=== PATIENT | male | born 1945 | race Caucasian/White ===

== ENCOUNTER 2023-04-22 15:11 | Inpatient (IN) | payer MEDICARE, OTHER ==
--- NOTE | 2023-04-22 15:42 | ED ---
Abdominal Pain HPI - General Source: patient, RN notes reviewed Mode of arrival: EMS Limitations: no limitations - History of Present Illness MD Complaint: abdominal pain <Page Romeo - Last Filed: 04/22/23 15:39> <Inocencio Alejandre - Last Filed: 04/22/23 22:43> - General Chief Complaint: Abdominal Pain Stated Complaint: Abd pain Time Seen by Provider: 04/22/23 15:38 - History of Present Illness Initial Comments: This is a 77-year-old male who presents to the emergency department for abdominal pain. Patient was pushing a sailboat earlier today, when he suddenly felt pain and a bulge in the right lower quadrant. He is concerned because he previously had a hernia repair with mesh in the same area. Denies any nausea or vomiting. (Page Romeo) This is a 77-year-old male with a past medical history of a previous right inguinal hernia status post mesh as well as hypertension presented to the emergency department for right lower abdominal pain and swelling. The patient stated that he was pushing his boat off the dock earlier today but did not notice any pop or sensation. The patient stated that after this, he had continued pain and swelling in the right lower quadrant of his abdomen that was continuous and worsening. The patient stated that the swelling has been increasing to the day to the point where he needed to come to the emergency department for further evaluation. The patient denied any other trauma at this time and was resting in bed comfortably. The patient was mildly nauseous but did not vomit. (Inocencio Alejandre) - Related Data Home Medications Medication Instructions Recorded Confirmed Apixaban [Eliquis] 5 mg PO BID 04/22/23 04/22/23 Lisinopril-Hctz 20-12.5 mg 1 tab PO BID 04/22/23 04/22/23 [Zestoretic 20-12.5] Pravastatin Sodium [Pravachol] 40 mg PO HS 04/22/23 04/22/23 Allergies Allergy/AdvReac Type Severity Reaction Status Date / Time Penicillins Allergy Rash/Hives Verified 04/22/23 22:31 Sulfa (Sulfonamide Allergy Rash/Hives Verified 04/22/23 22:31 Antibiotics) Review of Systems ROS Other: All systems not noted in ROS Statement are negative. <Page Romeo - Last Filed: 04/22/23 15:39> ROS Other: All systems not noted in ROS Statement are negative. <Inocencio Alejandre - Last Filed: 04/22/23 22:43> ROS Statement: Those systems with pertinent positive or pertinent negative responses have been documented in the HPI. Past Medical History Past Medical History: Atrial Fibrillation, Hyperlipidemia, Hypertension History of Any Multi-Drug Resistant Organisms: None Reported Past Surgical History: No Surgical Hx Reported, Hernia Repair Past Psychological History: No Psychological Hx Reported Smoking Status: Former smoker Past Alcohol Use History: Occasional Past Drug Use History: None Reported <Page Romeo - Last Filed: 04/22/23 15:39> General Exam Limitations: no limitations <Page Romeo - Last Filed: 04/22/23 15:39> Limitations: no limitations General appearance: alert, in no apparent distress, obese Head exam: Present: atraumatic, normocephalic, normal inspection Eye exam: Present: normal appearance, PERRL Pupils: Present: normal accommodation ENT exam: Present: normal exam, normal oropharynx, mucous membranes moist Neck exam: Present: normal inspection, full ROM Respiratory exam: Present: normal lung sounds bilaterally Cardiovascular Exam: Present: regular rate, normal rhythm, normal heart sounds GI/Abdominal exam: Present: hernia (Large right inguinal hernia with TTP, no erythema or induration noted as well as any skin changes.) Extremities exam: Present: normal inspection, full ROM Back exam: Present: normal inspection, full ROM Neurological exam: Present: alert, oriented X3, CN II-XII intact Psychiatric exam: Present: normal affect, normal mood Skin exam: Present: warm, dry <Inocencio Alejandre - Last Filed: 04/22/23 22:43> - General Exam Comments Initial Comments: Visual Physical Exam Vital signs reviewed General: Well-appearing, nontoxic, no acute distress. Head: Normocephalic, atraumatic Eyes: PERRLA, EOMI ENT: Airway patent Chest: Nonlabored breathing Skin: No visual rash, normal skin tone Neuro: Alert and oriented 3 Musculoskeletal: No gross abnormalities (Page Romeo) Course Vital Signs 04/22/23 04/22/23 04/22/23 15:31 18:07 22:21 Temperature 98.1 F 99.2 F Pulse Rate 65 71 76 Respiratory 20 18 20 Rate Blood Pressure 167/82 154/93 150/77 O2 Sat by Pulse 100 98 98 Oximetry Medical Decision Making <Page Romeo - Last Filed: 04/22/23 15:39> - Lab Data Result diagrams: 04/22/23 17:18 04/22/23 17:18 <HillInocencio villeda - Last Filed: 04/22/23 22:43> - Medical Decision Making I performed the QuickNote portion of this chart. Signed Page Romeo PA-C. (Page Romeo) Was pt. sent in by a medical professional or institution (, [facility], TEMPLATE LAYOUT WORKER, urgent care, hospital, or intermediate...) When possible be specific @ -No Did you speak to anyone other than the patient for history (EMS, parent, family, police, friend...)? What history was obtained from this source @ -No Did you review nursing and triage notes (agree or disagree)? Why? @ -I reviewed and agree with nursing and triage notes Were old charts reviewed (outside hosp., previous admission, EMS record, old EKG, old radiological studies, urgent care reports/EKG's, intermediate records)? Report findings @ -No old charts were reviewed Differential Diagnosis (chest pain, altered mental status, abdominal pain women, abdominal pain men, vaginal bleeding, weakness, fever, dyspnea, syncope, headache, dizziness, GI bleed, back pain, seizure, CVA, palpatations, mental health)? @ -Appendicitis, right inguinal hernia, incarcerated hernia EKG interpreted by me (3pts min.). @ -None X-rays interpreted by me (1pt min.). @ -None done CT interpreted by me (1pt min.). @ -CT of the abdomen and pelvis with contrast was obtained and was interpreted by myself showing a large inguinal hernia on the right containing loops small bowel with no evidence of complete obstruction. There was no evidence to suggest wall thickening. There was a small hiatal hernia. There was fat containing left inguinal hernia. U/S interpreted by me (1pt. min.). @ -None done What testing was considered but not performed or refused? (CT, X-rays, U/S, labs)? Why? @ -None What meds were considered but not given or refused? Why? @ -None Did you discuss the management of the patient with other professionals (professionals i.e. DrFerny, PA, TEMPLATE LAYOUT WORKER, lab, RT, psych nurse, medical social consultant, faro dealer, teacher, space officer, case repairer)? Give summary @ -Yes, Dr. Kahn was contacted regarding the patient's symptoms as the patient had onset reduction of the hernia by myself. Dr. Kahn evaluated the patient at the bedside and did state that the patient needed to go to the OR for reduction as he was unsuccessful at the bedside. Was smoking cessation discussed for >3mins.? @ -No Was critical care preformed (if so, how long)? @ -No Were there social determinants of health that impacted care today? How? (Homelessness, low income, unemployed, alcoholism, drug addiction, transportation, low edu. Level, literacy, decrease access to med. care, fdc, rehab)? @ -No Was there de-escalation of care discussed even if they declined (Discuss DNR or withdrawal of care, Hospice)? DNR status @ -No What co-morbidities impacted this encounter? (DM, HTN, Smoking, COPD, CAD, Cancer, CVA, ARF, Chemo, Hep., AIDS, mental health diagnosis, sleep apnea, morbid obesity)? @ -Previous right inguinal hernia and mesh Was patient admitted / discharged? Hospital course, mention meds given and route, prescriptions, significant lab abnormalities, going to OR and other pertinent info. @ -The patient was seen and evaluated emergency department. Physical exam, the patient was resting in bed without any acute distress. The patient had mild pain secondary to right lower abdominal swelling. Vital signs admission were stable. Due to the nature the patient's complaints, laboratory workup as well as CT abdomen and pelvis was obtained. Laboratory workup was significant for an elevated lactic acid. Computed tomography scan did show a large right inguinal hernia. I did attempt to reduce the hernia 2 times in the emergency department was a successful. The patient received pain medications but did not help with the reduction. Dr. Kahn was contacted and did see the patient at the bedside in the emergency department and was unsuccessful as well. Due to this, he did recommend the patient go to the operating room forward duction and fixation. The operating room and staff for arty in the hospital therefore the patient was admitted to the operating room for surgical fixation this evening. The patient was told this plan and was agreeable. The patient was admitted to the operating room. Undiagnosed new problem with uncertain prognosis? @ -No Drug Therapy requiring intensive monitoring for toxicity (Heparin, Nitro, Insulin, Cardizem)? @ -No Were any procedures done? @ -No Diagnosis/symptom? @ -Right inguinal hernia Acute, or Chronic, or Acute on Chronic? @ -Acute Uncomplicated (without systemic symptoms) or Complicated (systemic symptoms)? @ -Complicated Side effects of treatment? @ -No Exacerbation, Progression, or Severe Exacerbation? @ -No Poses a threat to life or bodily function? How? (Chest pain, USA, MS, pneumonia, PE, COPD, DKA, ARF, appy, cholecystitis, CVA, Diverticulitis, Homicidal, Suicidal, threat to staff... and all critical care pts) @ -Yes, continued unreduced hernia can lead to incarceration and necrosis of bowel leading to possible sepsis and . (Inocencio Alejandre) - Lab Data Lab Results 04/22/23 04/22/23 04/22/23 Range/Units 17:18 17:18 17:18 WBC 8.6 (3.8-10.6) k/uL RBC 4.23 L (4.30-5.90) m/uL Hgb 14.9 (13.0-17.5) gm/dL Hct 42.2 (39.0-53.0) % MCV 99.7 (80.0-100.0) fL MCH 35.3 H (25.0-35.0) pg MCHC 35.4 (31.0-37.0) g/dL RDW 13.1 (11.5-15.5) % Plt Count 145 L (150-450) k/uL MPV 9.7 Neutrophils % 92 % Lymphocytes % 5 % Monocytes % 2 % Eosinophils % 1 % Basophils % 1 % Neutrophils # 7.9 H (1.3-7.7) k/uL Lymphocytes # 0.4 L (1.0-4.8) k/uL Monocytes # 0.1 (0-1.0) k/uL Eosinophils # 0.1 (0-0.7) k/uL Basophils # 0.0 (0-0.2) k/uL Sodium 137 (137-145) mmol/L Potassium 4.0 (3.5-5.1) mmol/L Chloride 104 (98-107) mmol/L Carbon Dioxide 23 (22-30) mmol/L Anion Gap 10 mmol/L BUN 25 H (9-20) mg/dL Creatinine 1.03 (0.66-1.25) mg/dL Est GFR (CKD-EPI)AfAm 82 (>60 ml/min/1.73 sqM) Est GFR (CKD-EPI)NonAf 71 (>60 ml/min/1.73 sqM) Glucose 124 H (74-99) mg/dL Lactic Ac Sepsis Rflx Plasma Lactic Acid Nael 2.7 H* (0.7-2.0) mmol/L Calcium 10.1 (8.4-10.2) mg/dL Total Bilirubin 1.0 (0.2-1.3) mg/dL AST 34 (17-59) U/L ALT 24 (4-49) U/L Alkaline Phosphatase 54 (38-126) U/L Total Protein 7.1 (6.3-8.2) g/dL Albumin 4.6 (3.5-5.0) g/dL Lipase 74 (23-300) U/L 04/22/23 04/22/23 Range/Units 17:49 20:58 WBC (3.8-10.6) k/uL RBC (4.30-5.90) m/uL Hgb (13.0-17.5) gm/dL Hct (39.0-53.0) % MCV (80.0-100.0) fL MCH (25.0-35.0) pg MCHC (31.0-37.0) g/dL RDW (11.5-15.5) % Plt Count (150-450) k/uL MPV Neutrophils % % Lymphocytes % % Monocytes % % Eosinophils % % Basophils % % Neutrophils # (1.3-7.7) k/uL Lymphocytes # (1.0-4.8) k/uL Monocytes # (0-1.0) k/uL Eosinophils # (0-0.7) k/uL Basophils # (0-0.2) k/uL Sodium (137-145) mmol/L Potassium (3.5-5.1) mmol/L Chloride (98-107) mmol/L Carbon Dioxide (22-30) mmol/L Anion Gap mmol/L BUN (9-20) mg/dL Creatinine (0.66-1.25) mg/dL Est GFR (CKD-EPI)AfAm (>60 ml/min/1.73 sqM) Est GFR (CKD-EPI)NonAf (>60 ml/min/1.73 sqM) Glucose (74-99) mg/dL Lactic Ac Sepsis Rflx Y Plasma Lactic Acid Nael 1.1 (0.7-2.0) mmol/L Calcium (8.4-10.2) mg/dL Total Bilirubin (0.2-1.3) mg/dL AST (17-59) U/L ALT (4-49) U/L Alkaline Phosphatase (38-126) U/L Total Protein (6.3-8.2) g/dL Albumin (3.5-5.0) g/dL Lipase (23-300) U/L Disposition <Page Romeo - Last Filed: 04/22/23 15:39> Is patient prescribed a controlled substance at d/c from ED?: No Time of Disposition: 22:00 Decision to Admit Reason: Admit from EC Decision Date: 04/22/23 Decision Time: 22:00 <Inocencio Alejandre - Last Filed: 04/22/23 22:43> Clinical Impression: Inguinal hernia Disposition: ADMITTED IP TO THIS HOSP Condition: Stable Referrals: Nonstaff,Physician [Primary Care Provider] - 1-2 days
[2023-04-22] MEDS ORDERED: SODIUM CHLORIDE 0.9% 1,000 ML IV ONE ×2 (17:10→22:30)
[2023-04-22] MEDS ORDERED: MORPHINE SULFATE 4 MG/ML SYRINGE IVP STA (17:10)
[2023-04-22 17:31] LABS: Basophils % (A) 1 %; Eosinophils # (A) 0.1 k/uL (0-0.7); Eosinophils % (A) 1 %; HCT 42.2 % (39.0-53.0); HGB 14.9 gm/dL (13.0-17.5); Lymphocytes # (A) 0.4 k/uL (1.0-4.8); Lymphocytes % (A) 5 %; MCH 35.3 pg (25.0-35.0); MCHC 35.4 g/dL (31.0-37.0); MCV 99.7 fL (80.0-100.0); Mean Platelet Volume 9.7; Monocytes # (A) 0.1 k/uL (0-1.0); Monocytes % (A) 2 %; Neutrophils # (A) 7.9 k/uL (1.3-7.7); Neutrophils % (A) 92 %; Platelet Count 145 k/uL (150-450); RBC 4.23 m/uL (4.30-5.90); RDW 13.1 % (11.5-15.5); WBC 8.6 k/uL (3.8-10.6)
[2023-04-22 17:41] LABS: ALT 24 U/L (4-49); AST 34 U/L (17-59); African American GFR (CKD) 82 (>60 ml/min/1.73 sqM); Albumin 4.6 g/dL (3.5-5.0); Alkaline Phosphatase 54 U/L (38-126); Anion Gap 10 mmol/L; Blood Urea Nitrogen 25 mg/dL (9-20); Calcium 10.1 mg/dL (8.4-10.2); Carbon Dioxide 23 mmol/L (22-30); Chloride 104 mmol/L (98-107); Glucose 124 mg/dL (74-99); Lipase 74 U/L (23-300); Non-African American GFR(CKD) 71 (>60 ml/min/1.73 sqM); Sodium 137 mmol/L (137-145); Total Protein 7.1 g/dL (6.3-8.2)
--- NOTE | 2023-04-22 19:16 | CT ---
EXAMINATION TYPE: CT abdomen pelvis w con CT DLP: 2271.9 mGycm, Automated exposure control for dose reduction was used. DATE OF EXAM: 04/22/2023 6:47 PM COMPARISON: None. CLINICAL INDICATION:Male, 77 years old with history of RLQ pain, swelling; RLQ pain after handling he valeria object. Hx of hernia with mesh. TECHNIQUE: Axial CT of the abdomen and pelvis. Sagittal and coronal reformats were created on a [employer] workstation. Contrast used:100 ml mL of Isovue 300 with IV Contrast, (none if empty) Oral contrast used: without Oral Contrast (none if empty) FINDINGS: LOWER CHEST: Coronary artery calcifications. ABDOMEN LIVER: Unremarkable GALLBLADDER AND BILE DUCTS: Unremarkable. PANCREAS: Unremarkable. SPLEEN: Unremarkable. ADRENAL GLANDS: Unremarkable. KIDNEYS AND URETERS: No evidence of hydronephrosis or renal calculus. The ureters are unremarkable. PELVIS BLADDER: Unremarkable REPRODUCTIVE: Unremarkable. ABDOMEN & PELVIS STOMACH AND BOWEL: No evidence of bowel obstruction. Small hiatal hernia is present. Appendix is not visualized. Bowel loops in a right lower quadrant inguinal hernia as described below. PERITONEUM/RETROPERITONEUM: No evidence of pneumoperitoneum or free fluid. VASCULATURE: No evidence of aortic aneurysm. MUSCULOSKELETAL: No acute osseous abnormalities LYMPH NODES: No gross evidence for lymphadenopathy. SOFT TISSUE/ABDOMINAL WALL: Large inguinal hernia on the right containing loops of small bowel No fatou dence complete obstruction. No evidence for wall thickening to suggest attenuation. Fat-containing le ft inguinal hernia. Fat-containing umbilical hernia. IMPRESSION: 1. Large inguinal hernia on the right containing loops of small bowel No evidence complete obstructi on. No evidence for wall thickening to suggest attenuation. 2. Small hiatal hernia. 3. Fat-containing left inguinal hernia.
[2023-04-22] MEDS ORDERED: SODIUM CHLORIDE 0.9% 1,000 ML IV STA (22:12)
[2023-04-22] MEDS ORDERED: LEVOFLOXACIN 500MG-D5W PMX 500 MG in DEXTROSE/WATER 1 100ML.BAG IVPB STA (22:13)
[2023-04-22] MEDS ORDERED: NALOXONE 0.4 MG/ML 1 ML VIAL IV PRN (22:14)
--- NOTE | 2023-04-22 22:21 | P.GSHP ---
History of Present Illness H&P Date: 04/22/23 Chief Complaint: Incarcerated right inguinal hernia 77-year-old male came to the ER today. Patient has a boat that he was using to travel [facility]. He was pushing the boat away from the doctor earlier today when he felt the pain and a bulge in the right groin. Patient had previous open repair 5 years ago same location. Has had nausea, belching, decreased bowel function, increasing pain as the day progressed. Mild lactic acidosis on arrival. White blood cell count is normal. - Review of Systems Comment: The patient denies any acute changes in vision or hearing, no dysphagia or odynophagia, no chest pain or shortness of breath, no dysuria or hematuria, no headache, no runny nose, no rectal bleeding or melena, no unexplained weight loss Past Medical History Past Medical History: Atrial Fibrillation, Hyperlipidemia, Hypertension History of Any Multi-Drug Resistant Organisms: None Reported Past Surgical History: No Surgical Hx Reported, Hernia Repair Past Psychological History: No Psychological Hx Reported Smoking Status: Former smoker Past Alcohol Use History: Occasional Past Drug Use History: None Reported Medications and Allergies Allergies Allergy/AdvReac Type Severity Reaction Status Date / Time Penicillins Allergy Rash/Hives Verified 04/22/23 15:36 Sulfa (Sulfonamide Allergy Rash/Hives Verified 04/22/23 15:36 Antibiotics) Surgical - Exam Vital Signs Temp Pulse Resp BP Pulse Ox 98.1 F 65 20 167/82 100 04/22/23 15:31 04/22/23 15:31 04/22/23 15:31 04/22/23 15:31 04/22/23 15:31 Physical exam: General: Well-developed, well-nourished HEENT: Normocephalic, sclerae nonicteric Abdomen: Incarcerated right inguinal hernia, moderate tenderness, no overlying skin changes Extremities: No edema Neuro: Alert and oriented Results - Labs 04/22/23 17:18 04/22/23 17:18 Abnormal Lab Results - Last 24 Hours (Table) 04/22/23 04/22/23 04/22/23 Range/Units 17:18 17:18 17:18 RBC 4.23 L (4.30-5.90) m/uL MCH 35.3 H (25.0-35.0) pg Plt Count 145 L (150-450) k/uL Neutrophils # 7.9 H (1.3-7.7) k/uL Lymphocytes # 0.4 L (1.0-4.8) k/uL BUN 25 H (9-20) mg/dL Glucose 124 H (74-99) mg/dL Plasma Lactic Acid Nael 2.7 H* (0.7-2.0) mmol/L Diabetes panel 04/22/23 Range/Units 17:18 Sodium 137 (137-145) mmol/L Potassium 4.0 (3.5-5.1) mmol/L Chloride 104 (98-107) mmol/L Carbon Dioxide 23 (22-30) mmol/L BUN 25 H (9-20) mg/dL Creatinine 1.03 (0.66-1.25) mg/dL Glucose 124 H (74-99) mg/dL Calcium 10.1 (8.4-10.2) mg/dL AST 34 (17-59) U/L ALT 24 (4-49) U/L Alkaline Phosphatase 54 (38-126) U/L Total Protein 7.1 (6.3-8.2) g/dL Albumin 4.6 (3.5-5.0) g/dL Calcium panel 04/22/23 Range/Units 17:18 Calcium 10.1 (8.4-10.2) mg/dL Albumin 4.6 (3.5-5.0) g/dL Pituitary panel 04/22/23 Range/Units 17:18 Sodium 137 (137-145) mmol/L Potassium 4.0 (3.5-5.1) mmol/L Chloride 104 (98-107) mmol/L Carbon Dioxide 23 (22-30) mmol/L BUN 25 H (9-20) mg/dL Creatinine 1.03 (0.66-1.25) mg/dL Glucose 124 H (74-99) mg/dL Calcium 10.1 (8.4-10.2) mg/dL Adrenal panel 04/22/23 Range/Units 17:18 Sodium 137 (137-145) mmol/L Potassium 4.0 (3.5-5.1) mmol/L Chloride 104 (98-107) mmol/L Carbon Dioxide 23 (22-30) mmol/L BUN 25 H (9-20) mg/dL Creatinine 1.03 (0.66-1.25) mg/dL Glucose 124 H (74-99) mg/dL Calcium 10.1 (8.4-10.2) mg/dL Total Bilirubin 1.0 (0.2-1.3) mg/dL AST 34 (17-59) U/L ALT 24 (4-49) U/L Alkaline Phosphatase 54 (38-126) U/L Total Protein 7.1 (6.3-8.2) g/dL Albumin 4.6 (3.5-5.0) g/dL Assessment and Plan (1) Incarcerated right inguinal hernia Narrative/Plan: 77-year-old male with incarcerated right inguinal hernia. Multiple attempts at bedside reduction unsuccessful. Options reviewed. We'll proceed with open repair incarcerated right inguinal hernia with possible mesh. Discussed with patient that small bowel resection and or laparotomy may be required as well. Risks of bleeding, infection, recurrence, bladder and bowel injury, numbness, nerve injury, conversion to an laparotomy were discussed with the patient. The patient understands and wishes to proceed. Current Visit: Yes Status: Acute Code(s): K40.30 - UNIL INGUINAL HERNIA, W OBST, W/O GANGR, NOT SPCF RECUR SNOMED Code(s): 473417092
[2023-04-22] MEDS ORDERED: MIDAZOLAM 2 MG/2 ML VIAL ONE (23:21)
[2023-04-22] MEDS ORDERED: LIDOCAINE 2% INJ 20 MG/ML (2 ML VIAL) ONE (23:21)
[2023-04-22] MEDS ORDERED: ONDANSETRON 4 MG/2 ML VIAL ONE (23:21)
[2023-04-22] MEDS ORDERED: SUCCINYLCHOLINE CHLORIDE 200 MG/10 ML VIAL IV ONE (23:21)
[2023-04-22] MEDS ORDERED: GLYCOPYRROLATE 0.2 MG/ML 2 ML VIAL ONE (23:21)
[2023-04-22] MEDS ORDERED: fentaNYL (PF) 50 MCG/ML 2 ML AMP ONE (23:21)
[2023-04-22] MEDS ORDERED: ROCURONIUM 10 MG/ML (5 ML VIAL) IV ONE (23:21)
[2023-04-22] MEDS ORDERED: PROPOFOL 10 MG/ML 20 ML VIAL IV ONE (23:21)
[2023-04-22] MEDS ORDERED: NEOSTIGMINE 1 MG/ML 10 ML VIAL ONE (23:21)
[2023-04-23] MEDS ORDERED: BUPIVACAINE (PF) 0.25% 30 ML VIAL SQ ONE (00:41)
[2023-04-23] MEDS ORDERED: HYDROcodone/APAP 5-325MG 1 EACH TAB PO PRN (00:53)
[2023-04-23] MEDS ORDERED: HYDROmorphone 0.5 MG/0.5 ML SYRINGE IVP PRN (00:53)
[2023-04-23] MEDS ORDERED: ACETAMINOPHEN TAB 325 MG TAB PO PRN (00:53)
[2023-04-23] MEDS ORDERED: ONDANSETRON 4 MG/2 ML VIAL IVP PRN (00:53)
[2023-04-23] MEDS ORDERED: HYDROmorphone 1 MG/ML 1 ML SYRINGE IVP PRN (00:53)
[2023-04-23] MEDS ORDERED: ACETAMINOPHEN IV (For NPO) 1,000 MG in EMPTY BAG 1 BAG IVPB ONE (01:00)
--- NOTE | 2023-04-23 01:01 | P.OP ---
Date of Procedure: 04/23/23 Procedure(s) Performed: PREOPERATIVE DIAGNOSIS: Incarcerated recurrent right inguinal hernia POSTOPERATIVE DIAGNOSIS: Strangulated recurrent right inguinal hernia PROCEDURE: Open repair strangulated right inguinal hernia, laparotomy with small bowel resection SURGEON: Femi EBL: 50 mL ANESTHESIA: Gen. COMPLICATIONS: None OPERATIVE PROCEDURE: Patient placed on the operating table in the supine position. The patient was placed under general anesthesia. The abdomen was prepped and draped sterilely. The previous right groin incision was re-incised extending medially. The subcutaneous tissues were divided using electrocautery. Small vessels were divided using 3-0 silk ties. The external oblique was identified and incised sharply. The hernia sac was identified and opened. It was dark purple in color. As soon as we opened the hernia sac the ischemic small bowel was identified. There was a segment of ischemic small bowel that was also hemorrhagic in appearance. The defect in the hernia site itself was fairly small measuring 1.5-2 cm in diameter. With some difficulty we were able to reduce the small bowel back into the abdominal cavity. The defect was inspected. The patient had what felt like a mesh plug superiorly. The hernia sac was ligated using 0 Ethibond sutures. The mesh was then sutured down to the inguinal ligament using interrupted [id number] 0 Ethibond sutures. This appeared to provide nice closure of the recurrent hernia. No mesh was used because of the ischemic bowel. Next a curvilinear incision was made to the right of the umbilicus. The subcutaneous tissues were divided using electrocautery. The fascia was divided using electrocautery as well. The small bowel was inspected. The distal ileum was the ischemic segment. The superior only marginally improved after reduction of the abdominal cavity. Both the mesentery and the bowel itself appeared purplish in color and of questionable viability. It was decided to proceed with resection. The bowel was divided proximal and distal to this using a linear 75 stapler. The mesentery was divided using LigaSure. The antimesenteric portion of the staple line was excised. The linear 75 stapler was fired on the antimesenteric border. The remaining defect was closed transversely using a TX 60 device. 3-0 GI stitch at the crotch of the anastomosis took place. The TX 60 stapler line was imbricated using 3-0 GI silk sutures as well. The bowel was reduced back into the perineal cavity. The area was irrigated with saline. The fascia was then reapproximated using a double-stranded #1 PDS suture. Subcutaneous tissues were closed using interrupted 3-0 Vicryl sutures. The skin was closed using emelyn. The groin was then addressed. The external oblique was closed using a running 2-0 Vicryl suture. The subcutaneous tissues were closed using 3-0 Vicryl sutures. The skin was closed using emelyn. Sterile dressings were applied to both locations. DISPOSITION: Stable to recovery room. The patient's was contacted by phone the results of the procedure were discussed in detail. All questions answered
[2023-04-23 06:40] LABS: Appearance,Urine Clear (Clear); Color,Urine Yellow
[2023-04-23 06:42] LABS: PH, Urine 5.5 (5.0-8.0); Specific Gravity,Urine >1.050 (1.001-1.035)
[2023-04-23 06:43] LABS: Bilirubin,Urine Negative (Negative); Blood,Urine Negative (Negative); Glucose,Urine (UA) Negative (Negative); Ketones,Urine 2+ (Negative); Leukocyte Esterase,Urine Negative (Negative); Nitrite,Urine Negative (Negative); Protein,Urine Trace (Negative); Urobilinogen,Urine <2.0 mg/dL (<2.0)
[2023-04-23] MEDS: PANTOPRAZOLE 40 MG/10 ML VIAL IV SCH (08:49)
[2023-04-23] MEDS: HEPARIN SODIUM,PORCINE/PF 5,000 UNIT/0.5 ML SYRINGE SQ SCH ×2 (08:49→16:45)
[2023-04-23 11:51] LABS: Basophils # (A) 0.1 k/uL (0-0.2); Basophils % (A) 1 %; Eosinophils % (A) 0 %; HCT 39.7 % (39.0-53.0); HGB 13.7 gm/dL (13.0-17.5); Lymphocytes # (A) 0.6 k/uL (1.0-4.8); Lymphocytes % (A) 6 %; MCH 35.1 pg (25.0-35.0); MCHC 34.5 g/dL (31.0-37.0); MCV 101.8 fL (80.0-100.0); Macrocytosis Slight; Mean Platelet Volume 9.7; Monocytes # (A) 0.7 k/uL (0-1.0); Monocytes % (A) 7 %; Neutrophils # (A) 8.3 k/uL (1.3-7.7); Neutrophils % (A) 85 %; Platelet Count 133 k/uL (150-450); RDW 13.5 % (11.5-15.5); WBC 9.7 k/uL (3.8-10.6)
[2023-04-23 12:05] LABS: African American GFR (CKD) >90 (>60 ml/min/1.73 sqM); Anion Gap 7 mmol/L; Blood Urea Nitrogen 22 mg/dL (9-20); Calcium 8.8 mg/dL (8.4-10.2); Carbon Dioxide 26 mmol/L (22-30); Chloride 105 mmol/L (98-107); Glucose 110 mg/dL (74-99); Magnesium 1.9 mg/dL (1.6-2.3); Non-African American GFR(CKD) 84 (>60 ml/min/1.73 sqM); Sodium 138 mmol/L (137-145)
--- NOTE | 2023-04-23 14:54 | P.CONS ---
History of Present Illness - Reason for Consult Consult date: 04/23/23 Medical management, postop incarcerated hernia repair - History of Present Illness This is a 77-year-old male who presented to the emergency department via EMS with significant abdominal pain. Patient was up here from [place] with friends on a boat trip and had been pushing the sailboat and felt a large bulge in the right lower quadrant with significant pain. Patient reports he had a past medical history of hernia repair with mesh in that same area and was concerned about the mesh becoming dislodged. Patient reports he has a past medical history of atrial fibrillation maintained on eliquis, hyperlipidemia, and hyp ertension. Patient reports his primary care provider is in [place] at his residence. Patient had CT abdomen and pelvis which showed large inguinal hernia on the right containing loops of small bowel with no evidence of complete obstruction, no evidence of wall thickening to suggest attenuation, small hiatal hernia and fat-containing left inguinal hernia. Patient was admitted under surgical services and evaluated by surgery and underwent emergent open repair of the strangulated right hernia with laparotomy with small bowel resection for strangulated recurrent right inguinal hernia. Patient anticoagulation is on hold and will discuss with surgery about resuming Eliquis. Patient did have some lactic acidosis on admission which has normalized and kidney functions have improved from yesterday other labs reviewed and within normal limits. Patient was nothing by mouth and currently being started on clear liquids per surgery recommendations. Recommend only advancing per surgical requirements. Review Of Systems: Constitutional: No fever, no chills, no night sweats. No weight change. No weakness, fatigue or lethargy. No daytime sleepiness. EENT: No headache. No blurred vision or double vision, no loss of vision. No loss of Hearing, no ringing in the ears, no dizziness. No nasal drainage or congestion. No epistaxis. No sore throat. Lungs: No shortness of breath, cough, no sputum production. No wheezing. Cardiovascular: No chest pain, no lower extremity edema. No palpitations. No paroxysmal nocturnal dyspnea. No orthopnea. No lightheadedness or dizziness. No syncopal episodes. Abdominal: Reports some mild abdominal pain in the right lower quadrant with movement. No nausea, vomiting. No diarrhea. No constipation. No bloody or tarry stools.. No loss of appetite. Reports feeling slightly hungry Genitourinary: No dysuria, increased frequency, urgency. No urinary retention. Musculoskeletal: No myalgias. No muscle weakness, no gait dysfunction, no frequent falls. No back pain. No neck pain. Integumentary: No wounds, no lesions. No rash or pruritus. No unusual bruising. No change in hair or nails. Neurologic: No aphasia. No facial droop. No change in mentation. No head injury. No headache. No paralysis. No paresthesia. Psychiatric: No depression. No anxiety. No mood swings. Endocrine: No abnormal blood sugars. No weight change. No excessive sweating or thirst. No cold intolerance. PHYSICAL EXAMINATION: GENERAL: The patient is alert and oriented x4, Well developed, well nourished. Obese HEENT: Pupils are round and equally reacting to light. EOMI. no scleral icterus. No conjunctival pallor. Normocephalic, atraumatic. No pharyngeal erythema. No thyromegaly. CARDIOVASCULAR: S1 and S2 muffled PULMONARY: diminished breath sounds bilaterally with no wheezing or rhonchi noted. ABDOMEN: soft. tender on exam of the right lower quadrant. obese. non- distended, hypoactive bowel sounds. No palpable organomegaly. MUSCULOSKELETAL: No joint swelling or deformity. EXTREMITIES: No cyanosis, clubbing, or pedal edema. NEUROLOGICAL: Gross neurological examination did not reveal any focal deficits. SKIN: No rashes. Assessment: Abdominal pain secondary to incarcerated inguinal hernia status post open repair of strangulated right hernia with laparotomy with small bowel resection Lactic acidosis, secondary to above, improved History of atrial fibrillation Hyperlipidemia Hypertension Former smoker Obesity with a BMI of 36.3 GI prophylaxis DVT prophylaxis Full code Plan: Patient is to continue on nothing by mouth status per surgery recommendations and slowly being advanced to clear liquids today Encouraged incentive spirometer use at least 10 times every hour while awake Oral anticoagulation currently on hold and will hold for now per surgery recommendations and resume once okayed by surgery Encouraged increased activity as tolerated Blood pressures are currently normotensive and will hold blood pressure medica tions to monitor for any postoperative hypotension Patient lives in [place] and was visiting here on a sailboat with friends and has been instructed to follow-up with primary care provider once discharged We will continue to follow with general surgery during hospitalization. Thank you kindly for this consultation. The impression and plan of care has been dictated by Carolyn Ayon, nurse practitioner as directed. Dr. Mireya MD I have performed a history and examination and MDM of this patient, discussed the same with the dictator, and agree with the dictator's assessment and plan as written ,documented as a scribe. Based on total visit time, I have performed more than 50% of the visit. Any additional findings or plans will be noted. Past Medical History Past Medical History: Atrial Fibrillation, Hyperlipidemia, Hypertension History of Any Multi-Drug Resistant Organisms: None Reported Past Surgical History: No Surgical Hx Reported, Bowel Resection, Hernia Repair Additional Past Surgical History / Comment(s): 04/23/23 Bowel Resection Past Anesthesia/Blood Transfusion Reactions: No Reported Reaction Past Psychological History: No Psychological Hx Reported Smoking Status: Former smoker Past Alcohol Use History: Occasional Past Drug Use History: None Reported Medications and Allergies Home Medications Medication Instructions Recorded Confirmed Type Apixaban [Eliquis] 5 mg PO BID 04/22/23 04/22/23 History Lisinopril-Hctz 20-12.5 mg 1 tab PO BID 04/22/23 04/22/23 History [Zestoretic 20-12.5] Pravastatin Sodium [Pravachol] 40 mg PO HS 04/22/23 04/22/23 History Allergies Allergy/AdvReac Type Severity Reaction Status Date / Time Penicillins Allergy Rash/Hives Verified 04/22/23 22:31 Sulfa (Sulfonamide Allergy Rash/Hives Verified 04/22/23 22:31 Antibiotics) Physical Exam Vitals: Vital Signs Temp Pulse Pulse Resp BP BP Pulse Ox 04/23/23 08:06 98.6 F 80 18 129/69 98 04/23/23 04:26 71 104/62 95 04/23/23 03:25 71 110/67 93 L 04/23/23 02:55 73 110/69 04/23/23 02:31 18 04/23/23 02:25 65 113/67 04/23/23 02:10 68 118/66 04/23/23 01:55 69 126/71 04/23/23 01:40 134/75 04/23/23 01:30 98.7 F 77 18 136/94 96 04/23/23 01:25 98.7 F 72 136/94 95 04/23/23 01:15 82 18 140/65 99 04/23/23 01:01 79 18 147/71 98 04/23/23 00:46 97.0 F L 81 18 128/66 94 L 04/22/23 22:36 98.9 F 68 18 99 04/22/23 22:21 76 20 150/77 98 04/22/23 18:07 99.2 F 71 18 154/93 98 04/22/23 15:31 98.1 F 65 20 167/82 100 Intake and Output 04/22/23 04/23/23 04/23/23 22:59 06:59 14:59 Intake Total 0 Output Total 425 Balance -425 Intake: Oral 0 Output: Urine 400 Estimated Blood Loss 25 Other: Voiding Method Urinal Weight 117.934 kg 117.934 kg Results CBC & Chem 7: 04/23/23 10:59 04/23/23 10:59 Labs: Abnormal Lab Results - Last 24 Hours (Table) 04/22/23 04/22/23 04/22/23 Range/Units 17:18 17:18 17:18 RBC 4.23 L (4.30-5.90) m/uL MCH 35.3 H (25.0-35.0) pg Plt Count 145 L (150-450) k/uL Neutrophils # 7.9 H (1.3-7.7) k/uL Lymphocytes # 0.4 L (1.0-4.8) k/uL BUN 25 H (9-20) mg/dL Glucose 124 H (74-99) mg/dL Plasma Lactic Acid Nael 2.7 H* (0.7-2.0) mmol/L Ur Specific [place] (1.001-1.035) Urine Ketones (Negative) 04/23/23 Range/Units 06:15 RBC (4.30-5.90) m/uL MCH (25.0-35.0) pg Plt Count (150-450) k/uL Neutrophils # (1.3-7.7) k/uL Lymphocytes # (1.0-4.8) k/uL BUN (9-20) mg/dL Glucose (74-99) mg/dL Plasma Lactic Acid Nael (0.7-2.0) mmol/L Ur Specific [place] >1.050 H (1.001-1.035) Urine Ketones 2+ H (Negative)
--- NOTE | 2023-04-23 15:34 | P.PN ---
Subjective Progress Note Date: 04/23/23 CHIEF COMPLAINT: Strangulated recurrent right inguinal hernia HISTORY OF PRESENT ILLNESS: Patient is postop day #1 status post open repair of strangulated right inguinal hernia, laparotomy with small bowel resection. Patient reports his pain is controlled. He does have pain with movement. Denies any nausea or vomiting. Denies any flatus. Afebrile. WBC is 9.7 Hgb 13.7 platelets 133 PHYSICAL EXAM: VITAL SIGNS: Reviewed. GENERAL: Well-developed in no acute distress. ABDOMEN: Soft. Nondistended. Tenderness with palpation of incision sites. Midline incision small area of saturation. Right groin incision clean dry and intact. NEUROLOGIC: Alert and oriented. Cranial nerves II through XII grossly intact. ASSESSMENT: 1. Strangulated recurrent right inguinal hernia PLAN: -Advance diet to clear liquids -Abdominal binder ordered -Encouraged patient to use incentive spirometer -Encouraged patient to increase activity level -Continue pain management -DVT prophylaxis subcu heparin and GI prophylaxis Protonix Physician Personal Injury Attorney note has been reviewed by physician. Signing provider agrees with the documented findings, assessment, and plan of care. Objective - Vital Signs Vital signs: Vital Signs Temp 98.3 F 04/23/23 14:13 Pulse 61 04/23/23 14:13 Resp 16 04/23/23 14:13 BP 100/65 04/23/23 14:13 Pulse Ox 97 04/23/23 14:13 FiO2 Intake & Output 04/22/23 04/23/23 04/23/23 18:59 06:59 18:59 Intake Total 500 0 Output Total 425 Balance 500 -425 Weight 117.934 kg 117.934 kg Intake: IV 500 Oral 0 Output: Urine 400 Estimated Blood Loss 25 Other: Voiding Method Urinal Urinal # Voids 1 - Labs CBC & Chem 7: 04/23/23 10:59 04/23/23 10:59 Labs: Abnormal Lab Results - Last 24 Hours (Table) 04/22/23 04/22/23 04/22/23 Range/Units 17:18 17:18 17:18 RBC 4.23 L (4.30-5.90) m/uL MCV (80.0-100.0) fL MCH 35.3 H (25.0-35.0) pg Plt Count 145 L (150-450) k/uL Neutrophils # 7.9 H (1.3-7.7) k/uL Lymphocytes # 0.4 L (1.0-4.8) k/uL BUN 25 H (9-20) mg/dL Glucose 124 H (74-99) mg/dL Plasma Lactic Acid Nael 2.7 H* (0.7-2.0) mmol/L Ur Specific [place] (1.001-1.035) Urine Ketones (Negative) 04/23/23 04/23/23 04/23/23 Range/Units 06:15 10:59 10:59 RBC 3.90 L (4.30-5.90) m/uL MCV 101.8 H (80.0-100.0) fL MCH 35.1 H (25.0-35.0) pg Plt Count 133 L (150-450) k/uL Neutrophils # 8.3 H (1.3-7.7) k/uL Lymphocytes # 0.6 L (1.0-4.8) k/uL BUN 22 H (9-20) mg/dL Glucose 110 H (74-99) mg/dL Plasma Lactic Acid Nael (0.7-2.0) mmol/L Ur Specific [place] >1.050 H (1.001-1.035) Urine Ketones 2+ H (Negative)
[2023-04-24] MEDS: HEPARIN SODIUM,PORCINE/PF 5,000 UNIT/0.5 ML SYRINGE SQ SCH ×2 (00:36→09:26)
[2023-04-24] MEDS: PANTOPRAZOLE 40 MG/10 ML VIAL IV SCH (09:07)
--- NOTE | 2023-04-24 14:00 | P.PN ---
Subjective Progress Note Date: 04/24/23 CHIEF COMPLAINT: Strangulated recurrent right inguinal hernia HISTORY OF PRESENT ILLNESS: Patient is postop day #2 status post open repair of strangulated right inguinal hernia, laparotomy with small bowel resection. Patient reports his pain is controlled. Pain with movement is less. Denies any nausea or vomiting. Denies any flatus. Patient did not like the broth the clear liquids. Afebrile. WBC 9.7 hgb 13.7 PHYSICAL EXAM: VITAL SIGNS: Reviewed. GENERAL: Well-developed in no acute distress. ABDOMEN: Soft. Nondistended. Abdominal binder in place. Tenderness with palpation of incision sites. Midline incision small area of saturation. Right groin incision clean dry and intact. NEUROLOGIC: Alert and oriented. Cranial nerves II through XII grossly intact. ASSESSMENT: 1. Strangulated recurrent right inguinal hernia PLAN: -Advance diet to full liquids for dinner -Encouraged patient to use incentive spirometer -Encouraged patient to increase activity level -Continue pain management -Add Ensure clear with meals -DVT prophylaxis subcu heparin and GI prophylaxis Protonix Physician Collections Representative note has been reviewed by physician. Signing provider agrees with the documented findings, assessment, and plan of care. I have personally seen and examined the patient, reviewed the BIOMASS FACILITATOR /PAs history, exam and MDM and agree with the assessment and plan as written. Based on total visit time, I have performed more than 50% of the visit. As above: Patient feels bloated today. No nausea. No flatus. Will keep nothing by mouth for now. Dilation. Encourage gum chewing. Objective - Vital Signs Vital signs: Vital Signs Temp 98.7 F 04/24/23 09:05 Pulse 80 04/24/23 09:05 Resp 18 04/24/23 09:05 BP 107/70 04/24/23 09:05 Pulse Ox 97 04/24/23 09:05 FiO2 Intake & Output 04/23/23 04/24/23 04/24/23 18:59 06:59 18:59 Other: Voiding Method Urinal Toilet Toilet # Voids 3 - Labs CBC & Chem 7: 04/23/23 10:59 04/23/23 10:59
[2023-04-24] MEDS: HEPARIN SODIUM,PORCINE 5,000 UNIT/ML 1 ML VIAL SQ SCH ×2 (15:35→23:19)
--- NOTE | 2023-04-25 05:37 | P.PN ---
Subjective Progress Note Date: 04/24/23 - Reason for Consult Consult date: 04/23/23 Medical management, postop incarcerated hernia repair - History of Present Illness This is a 77-year-old male who presented to the emergency department via EMS with significant abdominal pain. Patient was up here from [place] with friends on a boat trip and had been pushing the sailboat and felt a large bulge in the right lower quadrant with significant pain. Patient reports he had a past me dical history of hernia repair with mesh in that same area and was concerned about the mesh becoming dislodged. Patient reports he has a past medical history of atrial fibrillation maintained on eliquis, hyperlipidemia, and hypertension. Patient reports his primary care provider is in [place] at his residence. Patient had CT abdomen and pelvis which showed large inguinal hernia on the right containing loops of small bowel with no evidence of complete obstruction, no evidence of wall thickening to suggest attenuation, small hiatal hernia and fat-containing left inguinal hernia. Patient was admitted under surgical services and evaluated by surgery and underwent emergent open repair of the strangulated right hernia with laparotomy with small bowel resection for strangulated recurrent right inguinal hernia. Patient anticoagulation is on hold and will discuss with surgery about resuming Eliquis. Patient did have some lactic acidosis on admission which has normalized and kidney functions have improved from yesterday other labs reviewed and within normal limits. Patient was nothing by mouth and currently being started on clear liquids per surgery recommendations. Recommend only advancing per surgical requirements. 04/24/2023 Patient is seen and evaluated in follow-up today currently sitting up in the chair reports no acute overnight issues noted. Patient being followed by [facility] surgery maintained on clear liquids and awaiting bowel activity. Patient denies any significant gas and is not having bowel movements. Patient reports to urinating with no difficulties, denies chest pain or shortness of breath, is afebrile. A.m. labs pending at this time. Encouraged increased activity as tolerated and frequent walking. Review of systems: Constitutional: No reports of fatigue, fever, or chills Cardiovascular: No reports of chest pain or palpitations Respiratory: No reports of shortness of breath or cough GI: No reports of nausea, vomiting, or diarrhea : No reports of dysuria or retention Neurovascular: No reports of weakness or numbness All medications have been reviewed PHYSICAL EXAMINATION: GENERAL: The patient is alert and oriented x4, Well developed, well nourished. Obese HEENT: Pupils are round and equally reacting to light. EOMI. no scleral icterus. No conjunctival pallor. Normocephalic, atraumatic. No pharyngeal erythema. No thyromegaly. CARDIOVASCULAR: S1 and S2 muffled PULMONARY: diminished breath sounds bilaterally with no wheezing or rhonchi noted. ABDOMEN: soft. tender on exam of the right lower quadrant. obese. non- distended, hypoactive bowel sounds. No palpable organomegaly. MUSCULOSKELETAL: No joint swelling or deformity. EXTREMITIES: No cyanosis, clubbing, or pedal edema. NEUROLOGICAL: Gross neurological examination did not reveal any focal deficits. SKIN: No rashes. Assessment: Abdominal pain secondary to incarcerated inguinal hernia status post open repair of strangulated right hernia with laparotomy with small bowel resection Lactic acidosis, secondary to above, improved History of atrial fibrillation Hyperlipidemia Hypertension Former smoker Obesity with a BMI of 36.3 GI prophylaxis DVT prophylaxis Full code Plan: Patient is to continue on clear liquids per surgery recommendations and slowly being advanced per surgery once more bowel activity Encouraged incentive spirometer use at least 10 times every hour while awake Oral anticoagulation currently on hold and will hold for now per surgery rec ommendations and resume once okayed by surgery. We'll continue subcu heparin Encouraged increased activity as tolerated and frequent walking down the halls Blood pressures are currently normotensive and will hold blood pressure medications Patient lives in [place] and was visiting here on a sailboat with friends and has been instructed to follow-up with primary care provider once discharged We will continue to follow with general surgery during hospitalization. Thank you kindly for this consultation. The impression and plan of care has been dictated by nurse Awa prac titioner as directed. Dr. Mireya MD I have performed a history and examination and MDM of this patient, discussed the same with the dictator, and agree with the dictator's assessment and plan as written ,documented as a scribe. Based on total visit time, I have performed more than 50% of the visit. Any additional findings or plans will be noted. Objective - Vital Signs Vital signs: Vital Signs Temp 98.7 F 04/24/23 09:05 Pulse 80 04/24/23 09:05 Resp 18 04/24/23 09:05 BP 107/70 04/24/23 09:05 Pulse Ox 97 04/24/23 09:05 FiO2 Intake & Output 04/23/23 04/24/23 04/24/23 18:59 06:59 18:59 Other: Voiding Method Urinal Toilet # Voids 3 - Labs CBC & Chem 7: 04/23/23 10:59 04/23/23 10:59 Labs: Abnormal Lab Results - Last 24 Hours (Table) 04/23/23 04/23/23 Range/Units 10:59 10:59 RBC 3.90 L (4.30-5.90) m/uL MCV 101.8 H (80.0-100.0) fL MCH 35.1 H (25.0-35.0) pg Plt Count 133 L (150-450) k/uL Neutrophils # 8.3 H (1.3-7.7) k/uL Lymphocytes # 0.6 L (1.0-4.8) k/uL BUN 22 H (9-20) mg/dL Glucose 110 H (74-99) mg/dL
[2023-04-25 09:16] LABS: Blood Urea Nitrogen 22.2 mg/dL (9.0-27.0); Calcium 9.2 mg/dL (8.7-10.3); Carbon Dioxide 21.5 mmol/L (21.6-31.8); Chloride 106 mmol/L (96-109); Glucose 125 mg/dL (70-110); Magnesium 2.1 mg/dL (1.5-2.4); Potassium 3.9 mmol/L (3.5-5.5); Sodium 141 mmol/L (135-145)
--- NOTE | 2023-04-25 09:25 | P.PN ---
Subjective Progress Note Date: 04/25/23 Principal diagnosis: Strangulated inguinal hernia Patient says he feels less bloated today. Less discomfort. No nausea or vomiting. He passed small amount of flatus. He is ambulating. Objective - Vital Signs Vital signs: Vital Signs Temp 98.2 F 04/25/23 07:13 Pulse 61 04/25/23 07:13 Resp 18 04/25/23 07:13 BP 154/93 04/25/23 07:13 Pulse Ox 95 04/25/23 07:13 FiO2 Intake & Output 04/24/23 04/25/23 04/25/23 18:59 06:59 18:59 Intake Total 240 Balance 240 Intake: Oral 240 Other: Voiding Method Toilet Toilet # Voids 4 2 - Exam Abdomen: Soft, mild distention, mild tenderness, dressings clean and dry - Labs CBC & Chem 7: 04/23/23 10:59 04/25/23 05:08 Labs: Abnormal Lab Results - Last 24 Hours (Table) 04/25/23 Range/Units 05:08 Carbon Dioxide 21.5 L (21.6-31.8) mmol/L Anion Gap 13.50 H (4.00-12.00) mmol/L BUN/Creatinine Ratio 22.20 H (12.00-20.00) Ratio Glucose 125 H (70-110) mg/dL Assessment and Plan (1) Incarcerated right inguinal hernia Narrative/Plan: Patient doing better at this time. Begin clear liquids. Ambulate. Anticipate discharge over the weekend. Current Visit: Yes Status: Acute Code(s): K40.30 - UNIL INGUINAL HERNIA, W OBST, W/O GANGR, NOT SPCF RECUR SNOMED Code(s): 540939159
[2023-04-25] MEDS: HEPARIN SODIUM,PORCINE 5,000 UNIT/ML 1 ML VIAL SQ SCH ×2 (10:04→14:43)
[2023-04-25] MEDS: PANTOPRAZOLE 40 MG/10 ML VIAL IV SCH (10:04)
--- NOTE | 2023-04-25 15:28 | P.PN ---
Subjective Progress Note Date: 04/25/23 - Reason for Consult Consult date: 04/23/23 Medical management, postop incarcerated hernia repair - History of Present Illness This is a 77-year-old male who presented to the emergency department via EMS with significant abdominal pain. Patient was up here from [place] with friends on a boat trip and had been pushing the sailboat and felt a large bulge in the right lower quadrant with significant pain. Patient reports he had a past me dical history of hernia repair with mesh in that same area and was concerned about the mesh becoming dislodged. Patient reports he has a past medical history of atrial fibrillation maintained on eliquis, hyperlipidemia, and hypertension. Patient reports his primary care provider is in [place] at his residence. Patient had CT abdomen and pelvis which showed large inguinal hernia on the right containing loops of small bowel with no evidence of complete obstruction, no evidence of wall thickening to suggest attenuation, small hiatal hernia and fat-containing left inguinal hernia. Patient was admitted under surgical services and evaluated by surgery and underwent emergent open repair of the strangulated right hernia with laparotomy with small bowel resection for strangulated recurrent right inguinal hernia. Patient anticoagulation is on hold and will discuss with surgery about resuming Eliquis. Patient did have some lactic acidosis on admission which has normalized and kidney functions have improved from yesterday other labs reviewed and within normal limits. Patient was nothing by mouth and currently being started on clear liquids per surgery recommendations. Recommend only advancing per surgical requirements. 04/24/2023 Patient is seen and evaluated in follow-up today currently sitting up in the chair reports no acute overnight issues noted. Patient being [facility] maintained on clear liquids and awaiting bowel activity. Patient denies any significant gas and is not having bowel movements. Patient reports to urinating with no difficulties, denies chest pain or shortness of breath, is afebrile. A.m. labs pending at this time. Encouraged increased activity as tolerated and frequent walking. 04/25/2023 Patient is seen this morning with general surgery following status post right incarcerated incisional hernia repair with resection. Patient is reporting some gas and being started on clear liquids with general surgery recommendations. Patient has some incisional discomfort although reports when not moving around is minimal. Patient has been up and walking more frequently and continuing to use incentive spirometer. Patient's anticoagulation was on hold given recent surgery and will resume starting tomorrow per surgery recommendations. Patient is currently afebrile with no reports of chest pain or shortness of breath. Surgery discussing possible discharge in the next 24-48 hours. Would Like to have some bowel activity prior to discharge. Encouraged continued incentive spirometer use as well. Review of systems: Constitutional: No reports of fatigue, fever, or chills Cardiovascular: No reports of chest pain or palpitations Respiratory: No reports of shortness of breath or cough GI: No reports of nausea, vomiting, or diarrhea, reports started passing gas with no bowel movement as of yet : No reports of dysuria or retention Neurovascular: No reports of weakness or numbness All medications have been reviewed PHYSICAL EXAMINATION: GENERAL: The patient is alert and oriented x4, Well developed, well nourished. Obese HEENT: Pupils are round and equally reacting to light. EOMI. no scleral icterus. No conjunctival pallor. Normocephalic, atraumatic. No pharyngeal erythema. No thyromegaly. CARDIOVASCULAR: S1 and S2 muffled PULMONARY: diminished breath sounds bilaterally with no wheezing or rhonchi noted. ABDOMEN: soft. tender on exam of the right lower quadrant. obese. non- distended, bowel sounds on exam. No palpable organomegaly. MUSCULOSKELETAL: No joint swelling or deformity. EXTREMITIES: No cyanosis, clubbing, or pedal edema. NEUROLOGICAL: Gross neurological examination did not reveal any focal deficits. SKIN: No rashes. Assessment: Abdominal pain secondary to incarcerated inguinal hernia status post open repair of strangulated right hernia with laparotomy with small bowel resection Lactic acidosis, secondary to above, improved History of atrial fibrillation Hyperlipidemia Hypertension Former smoker Obesity with a BMI of 36.3 GI prophylaxis DVT prophylaxis Full code Plan: Patient is to continue on clear liquids per surgery recommendations and reports to starting to pass some gas with no bowel movement as of yet. Surgery recommends possible discharge in 24-48 hours once bowel activity is resumed. Will continue on current bowel regimen and encouraged increase activity as tolerated. Patient reports has been walking frequently in the halls Encouraged incentive spirometer use at least 10 times every hour while awake Oral anticoagulation currently on hold and will resume starting tomorrow and this was discussed in cleared by surgery, continue subcutaneous heparin for tonight Blood pressures are becoming more elevated and will resume lisinopril as patient takes a combination lisinopril/hydrochlorothiazide. Recommend holding diuretics for now Patient lives in [facility] and was visiting here on a sailboat with friends and has been instructed to follow-up with primary care provider once discharged Per surgery, patient is to have dressing changes Friday or Friday prior to discharge and Dr. Kahn will be video conferencing the patient early this week. Possible discharge in the next 24-48 hours once bowel activity has resumed We will continue to follow with general surgery during hospitalization. Thank you kindly for this consultation. The impression and plan of care has been dictated by Carolyn Ayon, nurse practitioner as directed. Dr. Mireya MD I have performed a history and examination and MDM of this patient, discussed the same with the dictator, and agree with the dictator's assessment and plan as written ,documented as a scribe. Based on total visit time, I have performed more than 50% of the visit. Any additional findings or plans will be noted. Objective - Vital Signs Vital signs: Vital Signs Temp 98.6 F 04/25/23 01:35 Pulse 98 04/25/23 01:35 Resp 19 04/25/23 01:35 BP 147/89 04/25/23 01:35 Pulse Ox 96 04/25/23 01:35 FiO2 Intake & Output 04/24/23 04/24/23 04/25/23 06:59 18:59 06:59 Intake Total 240 Balance 240 Intake: Oral 240 Other: Voiding Method Toilet Toilet Toilet # Voids 4 2 - Labs CBC & Chem 7: 04/23/23 10:59 04/25/23 05:08
[2023-04-25] MEDS: lisinopriL 20 MG TAB PO SCH (20:31)
[2023-04-25] MEDS: PRAVASTATIN SODIUM 40 MG TAB PO SCH (20:31)
[2023-04-26] MEDS: APIXABAN 5 MG TAB PO SCH ×2 (08:41→21:53)
[2023-04-26] MEDS: PANTOPRAZOLE 40 MG TABLET PO SCH (08:41)
[2023-04-26] MEDS: lisinopriL 20 MG TAB PO SCH (08:41)
[2023-04-26 09:12] LABS: Basophils # (A) 0.02 X 10*3/uL (0.00-0.10); Basophils % (A) 0.3 %; Eosinophils # (A) 0.01 X 10*3/uL (0.04-0.35); Eosinophils % (A) 0.1 %; HCT 41.2 % (39.6-50.0); HGB 14.2 d/dL (13.0-17.0); Lymphocytes # (A) 1.13 X 10*3/uL (0.90-5.00); Lymphocytes % (A) 14.9 %; MCH 34.3 pg (27.0-32.0); MCHC 34.5 d/dL (32.0-37.0); MCV 99.5 FL (80.0-97.0); Mean Platelet Volume 12.1 FL (9.5-12.2); Monocytes # (A) 0.92 X 10*3/uL (0.20-1.00); Monocytes % (A) 12.2 %; NRBC Per 100 WBC 0 X 10*3/uL (0.00-0.01); Neutrophils # (A) 5.44 X 10*3/uL (1.80-7.70); Neutrophils % (A) 71.8 %; Platelet Count 182 X 10*3/uL (140-440); RBC 4.14 X 10*6/uL (4.40-5.60); RDW 13.5 % (11.5-14.5); WBC 7.57 X 10*3/uL (4.50-10.00)
[2023-04-26 09:23] LABS: BUN/Creat Ratio 27.45 Ratio (12.00-20.00); Blood Urea Nitrogen 30.2 mg/dL (9.0-27.0); Carbon Dioxide 24.1 mmol/L (21.6-31.8); Chloride 107 mmol/L (96-109); Glucose 116 mg/dL (70-110); Sodium 139 mmol/L (135-145)
[2023-04-26] MEDS ORDERED: LACTULOSE 20 GM/30 ML CUP PO PRN (13:34)
[2023-04-26] MEDS ORDERED: bisacodyL 10 MG SUPP RECTAL STA (13:34)
--- NOTE | 2023-04-26 13:41 | P.PN ---
Subjective Progress Note Date: 04/26/23 This is a 77-year-old male who presented to the emergency department via EMS with significant abdominal pain. Patient was up here from [place] with friends on a boat trip and had been pushing the sailboat and felt a large bulge in the right lower quadrant with significant pain. Patient reports he had a past medical history of hernia repair with mesh in that same area and was concerned about the mesh becoming dislodged. Patient reports he has a past medical history of atrial fibrillation maintained on eliquis, hyperlipidemia, and hypertension. Patient reports his primary care provider is in [place] at his residence. Patient had CT abdomen and pelvis which showed large inguinal hernia on the right containing loops of small bowel with no evidence of complete obstruction, no evidence of wall thickening to suggest attenuation, small hiatal hernia and fat-containing left inguinal hernia. Patient was admitted under surgical services and evaluated by surgery and underwent emergent open repair of the strangulated right hernia with laparotomy with small bowel resection for strangulated recurrent right inguinal hernia. Patient anticoagulation is on hold and will discuss with surgery about resuming Eliquis. Patient did have some lactic acidosis on admission which has normalized and kidney functions have improved from yesterday other labs reviewed and within normal limits. Patient was nothing by mouth and currently being started on clear liquids per surgery recommendations. Recommend only advancing per surgical requirements. 04/24/2023 Patient is seen and evaluated in follow-up today currently sitting up in the chair reports no acute overnight issues noted. Patient being followed by general surgery maintained on clear liquids and awaiting bowel activity. Patient denies any significant gas and is not having bowel movements. Patient reports to urinating with no difficulties, denies chest pain or shortness of breath, is afebrile. A.m. labs pending at this time. Encouraged increased activity as tolerated and frequent walking. 04/25/2023 Patient is seen this morning with general surgery following status post right incarcerated incisional hernia repair with resection. Patient is reporting some gas and being started on clear liquids with general surgery recommendations. Patient has some incisional discomfort although reports when not moving around is minimal. Patient has been up and walking more frequently and continuing to use incentive spirometer. Patient's anticoagulation was on hold given recent surgery and will resume starting tomorrow per surgery recommendations. Patient is currently afebrile with no reports of chest pain or shortness of breath. Surgery discussing possible discharge in the next 24-48 hours. Would Like to have some bowel activity prior to discharge. Encouraged continued incentive spirometer use as well. 04/26/2023 Patient is evaluated today sitting up in the chair postoperative #2 right inguinal hernia repair and laporotomy with small bowl resection for incarcerated hernia. He reports minimal pain has been up ambulating however his main complaint is that he has not had a bowel movement yet. He is given dulcolax suppository. He remains on clear liquid diet. Surgery following. Review of systems: Constitutional: No reports of fatigue, fever, or chills Cardiovascular: No reports of chest pain or palpitations Respiratory: No reports of shortness of breath or cough GI: No reports of nausea, vomiting, or diarrhea, reports started passing gas with no bowel movement as of yet : No reports of dysuria or retention Neurovascular: No reports of weakness or numbness All medications have been reviewed PHYSICAL EXAMINATION: GENERAL: The patient is alert and oriented x4, Well developed, well nourished. Obese HEENT: Pupils are round and equally reacting to light. EOMI. no scleral icterus. No conjunctival pallor. Normocephalic, atraumatic. No pharyngeal erythema. No thyromegaly. CARDIOVASCULAR: S1 and S2 muffled PULMONARY: diminished breath sounds bilaterally with no wheezing or rhonchi noted. ABDOMEN: soft. tender on exam of the right lower quadrant. obese. non- distended, bowel sounds on exam. No palpable organomegaly. MUSCULOSKELETAL: No joint swelling or deformity. EXTREMITIES: No cyanosis, clubbing, or pedal edema. NEUROLOGICAL: Gross neurological examination did not reveal any focal deficits. SKIN: No rashes. Assessment: Abdominal pain secondary to incarcerated inguinal hernia status post open repair of strangulated right hernia with laparotomy with small bowel resection Lactic acidosis, secondary to above, improved History of atrial fibrillation anticoagulated with eliquis which has been resumed Hyperlipidemia Hypertension Former smoker Obesity with a BMI of 36.3 GI prophylaxis DVT prophylaxis Full code Plan: Dulcolax suppository given Patient is to continue on clear liquids per surgery recommendations and reports to starting to pass some gas with no bowel movement as of yet. Surgery recommends possible discharge in 24-48 hours once bowel activity is resumed. Will continue on current bowel regimen and encouraged increase activity as tolerated. Patient reports has been walking frequently in the halls Encouraged incentive spirometer use at least 10 times every hour while awake Patient lives in [facility] and was visiting here on a sailboat with friends and has been instructed to follow-up with primary care provider once discharged Per surgery, patient is to have dressing changes Friday or Friday prior to discharge and Dr. Kahn will be video conferencing the patient early this week. Possible discharge in the next 24-48 hours once bowel activity has resumed We will continue to follow with general surgery during hospitalization. Thank you kindly for this consultation. The impression and plan of care has been dictated by Vilma Vargas, Nurse Practitioner as directed. Dr. Mireya MD I have performed a history and physical examination and medical decision making of this patient, discussed the same with the dictator, and agree with the dictators assessment and plan as written, documented as a scribe. Based on total visit time, I have performed more than 50% of this visit. Objective - Vital Signs Vital signs: Vital Signs Temp 98.3 F 04/26/23 11:49 Pulse 81 04/26/23 11:49 Resp 20 04/26/23 11:49 BP 125/88 04/26/23 11:49 Pulse Ox 97 04/26/23 11:49 FiO2 Intake & Output 04/25/23 04/26/23 04/26/23 18:59 06:59 18:59 Intake Total 360 720 Balance 360 720 Intake: Oral 360 720 Other: Voiding Method Toilet Toilet Toilet # Voids 4 2 - Labs CBC & Chem 7: 04/26/23 05:06 04/26/23 05:06 Labs: Abnormal Lab Results - Last 24 Hours (Table) 04/26/23 04/26/23 Range/Units 05:06 05:06 RBC 4.14 L (4.40-5.60) X 10*6/uL MCV 99.5 H (80.0-97.0) FL MCH 34.3 H (27.0-32.0) pg Eosinophils # 0.01 L (0.04-0.35) X 10*3/uL BUN 30.2 H (9.0-27.0) mg/dL BUN/Creatinine Ratio 27.45 H (12.00-20.00) Ratio Glucose 116 H (70-110) mg/dL Assessment and Plan Time with Patient: Less than 30
[2023-04-26] MEDS ORDERED: NA PHOS,M-B/NA PHOS,DI-BA 133 ML ENEMA RECTAL ONE (17:55)
--- NOTE | 2023-04-26 17:55 | P.PN ---
Subjective Progress Note Date: 04/26/23 He reports feeling worse. He is bloated and denies any bowel movement with suppository. Options of enema described with oral laxatives and gas-x. Objective - Vital Signs Vital signs: Vital Signs Temp 98.3 F 04/26/23 11:49 Pulse 81 04/26/23 11:49 Resp 20 04/26/23 11:49 BP 125/88 04/26/23 11:49 Pulse Ox 97 04/26/23 11:49 FiO2 Intake & Output 04/25/23 04/26/23 04/26/23 18:59 06:59 18:59 Intake Total 360 720 Balance 360 720 Intake: Oral 360 720 Other: Voiding Method Toilet Toilet Toilet # Voids 4 2 1 - Labs CBC & Chem 7: 04/26/23 05:06 04/26/23 05:06 Labs: Abnormal Lab Results - Last 24 Hours (Table) 04/26/23 04/26/23 Range/Units 05:06 05:06 RBC 4.14 L (4.40-5.60) X 10*6/uL MCV 99.5 H (80.0-97.0) FL MCH 34.3 H (27.0-32.0) pg Eosinophils # 0.01 L (0.04-0.35) X 10*3/uL BUN 30.2 H (9.0-27.0) mg/dL BUN/Creatinine Ratio 27.45 H (12.00-20.00) Ratio Glucose 116 H (70-110) mg/dL
[2023-04-26] MEDS: SIMETHICONE 80 MG CHEWABLE PO SCH ×2 (18:12→21:53)
[2023-04-26] MEDS: PRAVASTATIN SODIUM 40 MG TAB PO SCH (21:53)
[2023-04-27] MEDS: SIMETHICONE 80 MG CHEWABLE PO SCH ×3 (08:45→21:02)
[2023-04-27] MEDS: APIXABAN 5 MG TAB PO SCH ×2 (08:45→21:01)
[2023-04-27] MEDS: PANTOPRAZOLE 40 MG TABLET PO SCH (08:46)
[2023-04-27] MEDS: lisinopriL 20 MG TAB PO SCH (08:46)
--- NOTE | 2023-04-27 13:02 | P.PN ---
Subjective Progress Note Date: 04/27/23 He had multiple bowel movements after enemas. He is feeling better He was NPO May resume diet Discharge home anticipated for tomorrow. Start bowel regimen Objective - Vital Signs Vital signs: Vital Signs Temp 98.2 F 04/27/23 07:40 Pulse 83 04/27/23 07:40 Resp 14 04/27/23 07:40 BP 119/77 04/27/23 07:40 Pulse Ox 96 04/27/23 07:40 FiO2 Intake & Output 04/26/23 04/27/23 04/27/23 18:59 06:59 18:59 Other: Voiding Method Toilet # Voids 1 2 - Labs CBC & Chem 7: 04/26/23 05:06 04/26/23 05:06
[2023-04-27] MEDS: LACTULOSE 20 GM/30 ML CUP PO SCH ×2 (15:59→21:02)
--- NOTE | 2023-04-27 17:08 | P.PN ---
Subjective Progress Note Date: 04/27/23 This is a 77-year-old male who presented to the emergency department via EMS with significant abdominal pain. Patient was up here from [place] with friends on a boat trip and had been pushing the sailboat and felt a large bulge in the right lower quadrant with significant pain. Patient reports he had a past medical history of hernia repair with mesh in that same area and was concerned about the mesh becoming dislodged. Patient reports he has a past medical history of atrial fibrillation maintained on eliquis, hyperlipidemia, and hypertension. Patient reports his primary care provider is in [place] at his residence. Patient had CT abdomen and pelvis which showed large inguinal hernia on the right containing loops of small bowel with no evidence of complete obstruction, no evidence of wall thickening to suggest attenuation, small hiatal hernia and fat-containing left inguinal hernia. Patient was admitted under surgical services and evaluated by surgery and underwent emergent open repair of the strangulated right hernia with laparotomy with small bowel resection for strangulated recurrent right inguinal hernia. Patient anticoagulation is on hold and will discuss with surgery about resuming Eliquis. Patient did have some lactic acidosis on admission which has normalized and kidney functions have improved from yesterday other labs reviewed and within normal limits. Patient was nothing by mouth and currently being started on clear liquids per surgery recommendations. Recommend only advancing per surgical requirements. 04/24/2023 Patient is seen and evaluated in follow-up today currently sitting up in the chair reports no acute overnight issues noted. Patient being followed by general surgery maintained on clear liquids and awaiting bowel activity. Patient denies any significant gas and is not having bowel movements. Patient reports to urinating with no difficulties, denies chest pain or shortness of breath, is afebrile. A.m. labs pending at this time. Encouraged increased activity as tolerated and frequent walking. 04/25/2023 Patient is seen this morning with general surgery following status post right incarcerated incisional hernia repair with resection. Patient is reporting some gas and being started on clear liquids with general surgery recommendations. Patient has some incisional discomfort although reports when not moving around is minimal. Patient has been up and walking more frequently and continuing to use incentive spirometer. Patient's anticoagulation was on hold given recent surgery and will resume starting tomorrow per surgery recommendations. Patient is currently afebrile with no reports of chest pain or shortness of breath. Surgery discussing possible discharge in the next 24-48 hours. Would Like to have some bowel activity prior to discharge. Encouraged continued incentive spirometer use as well. 04/26/2023 Patient is evaluated today sitting up in the chair postoperative #2 right inguinal hernia repair and laporotomy with small bowl resection for incarcerated hernia. He reports minimal pain has been up ambulating however his main complaint is that he has not had a bowel movement yet. He is given dulcolax suppository. He remains on clear liquid diet. Surgery following. 04/27/2023 Subjective today sitting up in the chair he is postoperative day #3 right inguinal hernia repair, and laporotomy with small bowel resection for incarcerated hernia. He had a bowel movement this morning after receiving a Dulcolax suppository and 2 enemas yesterday. He woke up from sleep around 4 AM and did have a bowel movement and has 2 other small BMs since. He reports no surgical pain. He was placed NPO by surgery due to no bowel movement expect this to be advanced today. Review of systems: Constitutional: No reports of fatigue, fever, or chills Cardiovascular: No reports of chest pain or palpitations Respiratory: No reports of shortness of breath or cough GI: No reports of nausea, vomiting, or diarrhea, had a BM. : No reports of dysuria or retention Neurovascular: No reports of weakness or numbness All medications have been reviewed PHYSICAL EXAMINATION: GENERAL: The patient is alert and oriented x4, Well developed, well nourished. Obese HEENT: Pupils are round and equally reacting to light. EOMI. no scleral icterus. No conjunctival pallor. Normocephalic, atraumatic. No pharyngeal erythema. No thyromegaly. CARDIOVASCULAR: S1 and S2 muffled PULMONARY: diminished breath sounds bilaterally with no wheezing or rhonchi noted. ABDOMEN: soft. tender on exam of the right lower quadrant. obese. non- distended, bowel sounds on exam. No palpable organomegaly. Post surgical midline and rlq dressings intact. MUSCULOSKELETAL: No joint swelling or deformity. EXTREMITIES: No cyanosis, clubbing, or pedal edema. NEUROLOGICAL: Gross neurological examination did not reveal any focal deficits. SKIN: No rashes. Assessment: Abdominal pain secondary to incarcerated inguinal hernia status post open repair of strangulated right hernia with laparotomy with small bowel resection Constipation resolved Lactic acidosis, secondary to above, improved History of atrial fibrillation anticoagulated with eliquis which has been resumed Hyperlipidemia Hypertension Former smoker Obesity with a BMI of 36.3 GI prophylaxis DVT prophylaxis Full code Plan: Continue on bowel regimen and increase activity level. Encouraged incentive spirometer use at least 10 times every hour while awake Patient lives in [facility] and was visiting here on a sailboat with friends and has been instructed to follow-up with primary care provider once discharged Per surgery, patient is to have dressing changes Friday or Friday prior to discharge and Dr. Kahn will be video conferencing the patient early this week. Possible discharge in the next 24-48 hours once bowel activity has resumed We will continue to follow with general surgery during hospitalization. Thank you kindly for this consultation. The impression and plan of care has been dictated by Vilma Vargas, Nurse Practitioner as directed. Dr. Mireya MD I have performed a history and physical examination and medical decision making of this patient, discussed the same with the dictator, and agree with the dictators assessment and plan as written, documented as a scribe. Based on total visit time, I have performed more than 50% of this visit. Objective - Vital Signs Vital signs: Vital Signs Temp 98.2 F 04/27/23 07:40 Pulse 83 04/27/23 07:40 Resp 14 04/27/23 07:40 BP 119/77 04/27/23 07:40 Pulse Ox 96 04/27/23 07:40 FiO2 Intake & Output 04/26/23 04/27/23 04/27/23 18:59 06:59 18:59 Other: Voiding Method Toilet # Voids 1 2 - Labs CBC & Chem 7: 04/26/23 05:06 04/26/23 05:06 Assessment and Plan Time with Patient: Less than 30
[2023-04-27] MEDS: PRAVASTATIN SODIUM 40 MG TAB PO SCH (21:01)
[2023-04-28] MEDS: PANTOPRAZOLE 40 MG TABLET PO SCH (09:20)
[2023-04-28] MEDS: SIMETHICONE 80 MG CHEWABLE PO SCH ×3 (09:21→20:47)
[2023-04-28] MEDS: APIXABAN 5 MG TAB PO SCH ×2 (09:21→20:47)
[2023-04-28] MEDS: lisinopriL 20 MG TAB PO SCH (09:21)
[2023-04-28] MEDS: LACTULOSE 20 GM/30 ML CUP PO SCH ×2 (09:21→20:47)
--- NOTE | 2023-04-28 15:43 | P.DS ---
Providers Date of admission: 04/22/23 22:14 Expected date of discharge: 04/28/23 Attending physician: Hector Kahn Consults: 04/23/23 00:53 Consult Physician Routine Consulting Provider: Sudeep Stevens Consult Reason/Comments: med mgmt Do you want consulting provider notified?: Yes Primary care physician: Physician Nonstaff Hospital Course: discharge diagnosis 1. Strangulated recurrent right inguinal hernia Hospital course This is a 77-year-old male who presented with right groin pain and bulge. He had evidence of strangulated recurrent right inguinal hernia. He is status post open repair of strangulated right inguinal hernia, laparotomy with small bowel resection. Patient reports his pain is controlled. He is having bowel movements. He is tolerating regular diet. He is afebrile. He has been up and ambulating. He is stable for discharge. Please refer to chart for any further details. Physician Aircraft Design Engineer note has been reviewed by physician. Signing provider agrees with the documented findings, assessment, and plan of care. Patient Condition at Discharge: Stable Plan - Discharge Summary Discharge Rx Participant: No New Discharge Prescriptions: New HYDROcodone/APAP 5-325MG [[place] 5-325] 1 tab PO Q6HR PRN 3 Days #12 tab PRN Reason: Pain Continue Pravastatin Sodium [Pravachol] 40 mg PO HS Apixaban [Eliquis] 5 mg PO BID No Action Lisinopril-Hctz 20-12.5 mg [Zestoretic 20-12.5] 1 tab PO BID Discharge Medication List Apixaban [Eliquis] 5 mg PO BID 04/22/23 [History] Lisinopril-Hctz 20-12.5 mg [Zestoretic 20-12.5] 1 tab PO BID 04/22/23 [History] Pravastatin Sodium [Pravachol] 40 mg PO HS 04/22/23 [History] HYDROcodone/APAP 5-325MG [[place] 5-325] 1 tab PO Q6HR PRN 3 Days #12 tab 04/28/23 [Rx] Follow up Appointment(s)/Referral(s): Nonstaff,Physician [Primary Care Provider] - 1-2 days Hector Kahn MD [Medical Doctor] - 1 Week Activity/Diet/Wound Care/Special Instructions: No driving while taking [place] No lifting over 10 pounds You may shower. No soaking or tub baths for 2 weeks Very light activity until you are reevaluated at your follow up appointment with your surgeon Discharge Disposition: HOME SELF-CARE
[2023-04-28] MEDS: PRAVASTATIN SODIUM 40 MG TAB PO SCH (20:47)
--- NOTE | 2023-04-29 07:44 | PN ---
PROGRESS NOTE DATE OF SERVICE: 04/28/2023 SUBJECTIVE: This is a 77-year-old gentleman who was admitted after an incarcerated inguinal hernia repair, is being monitored, improving significantly. No chest pain. No palpitation. OBJECTIVE: VITAL SIGNS: Pulse is 89, blood pressure 135/90, respirations 20. CHEST: Clear to auscultation. CARDIOVASCULAR: S1, S2. ABDOMEN: Soft. NERVOUS SYSTEM: No focal deficits. LABORATORY DATA: Reviewed. ASSESSMENT: 1. Acute incarcerated inguinal hernia status post open repair of a strangulated hernia with laparotomy and small-bowel resection. 2. Constipation. 3. History of atrial fibrillation. 4. Hypertension. 5. Hyperlipidemia. RECOMMENDATIONS: Recommend to continue current treatment. Otherwise, DVT prophylaxis. Resume the home medications. Rest of the recommendations per Surgery. Recommended close followup with primary physician. ALLAN / CALLIE: [phone] / MTDD
[2023-04-29] MEDS: SIMETHICONE 80 MG CHEWABLE PO SCH (08:37)
[2023-04-29] MEDS: LACTULOSE 20 GM/30 ML CUP PO SCH (08:37)
[2023-04-29] MEDS: PANTOPRAZOLE 40 MG TABLET PO SCH (08:37)
[2023-04-29] MEDS: APIXABAN 5 MG TAB PO SCH (08:37)
[2023-04-29] MEDS: lisinopriL 20 MG TAB PO SCH (08:37)
[2023-04-29 08:57] VITALS: BP 123/81; PULSE 77; RESP 20; TEMP 98
--- NOTE | 2023-04-29 11:03 | CDI ---
Documentation Clarification Form Date: 04/29/2023 From: Sonal Lr Phone: [phone] Admit Date: 04/22/2023 10:14:00 PM Patient Name: Serafin Shea Visit Number: [id number] ATTENTION: The Clinical Documentation Specialists (CDI) and [facility] Coding Staff appreciate your assistance in clarifying documentation. Please respond to the clarification below the line at the bottom and electronically sign. The CDI & [facility] Coding staff will review the response and follow-up if needed. Please note: Queries are made part of the Legal Health Record. If you have any questions, please contact the author of this message via ITS. Dr. Hector Kahn There is documentation of ischemic bowel in the op note on 04/23. Additional clarification is requested. History/Risk Factors: 77yo presented with an incarcerated recurrent right inguinal hernia on 04/22. Patient had a previous hernia open repair 5 years ago in the same location. Clinical Indicators: Pt underwent an open repair strangulated right inguinal hernia and a laparotomy with small bowel resection on 04/23. Per the op note, as soon as we opened the hernia sac the ischemic small bowel was identified. There was a segment of ischemic small bowel that was also hemorrhagic in appearance... Both the mesentery and the bowel itself appeared purplish in color and of questionable viability. It was decided to proceed with resection Can you please clarify the ischemic bowel? [ X] Acute small bowel ischemia with hemorrhage [ ] Acute small bowel ischemia without hemorrhage [ ] Other, please specify [ ] Unable to determine MTDD
--- NOTE | 2023-04-29 20:20 | PN ---
PROGRESS NOTE DATE OF SERVICE: 04/29/2023 SUBJECTIVE: This is a 77-year-old gentleman admitted after right inguinal hernia surgery. He is improving significantly. No chest pain or palpitation. OBJECTIVE: VITAL SIGNS: Pulse is 77, blood pressure 123/81, respirations 20. CHEST: Clear to auscultation. CARDIOVASCULAR: S1 and S2. ABDOMEN: Soft. Status post surgery. LABORATORY DATA: Reviewed. ASSESSMENT: 1. Acute incarcerated inguinal hernia, status post open repair of strangulated hernia with laparotomy and small bowel resection. 2. Constipation. 3. History of atrial fibrillation. 4. Hypertension. 5. Hyperlipidemia. RECOMMENDATIONS: Recommend to continue current medications. Continue symptomatic treatment. Resume the home medications. Follow with primary physician in the outpatient setting closely. Rest of the recommendations per Surgery. DVT prophylaxis. MMODL / IJN: [id number] /
== END 2023-04-29 12:10 | disposition home or self-care (01) | DRG 329 ==
LOC: EC 15:11 → 5NMEDONC 22:14 → EC 22:27 → 5NMEDONC 23:22
PROVIDERS: ADMIT Surgery; ATTEND Surgery
PROC: 0DTB0ZZ Resection of Ileum, Open Approach (ICD-10-PCS; principal; 2023-04-23)
PROC: 0YQ50ZZ Repair Right Inguinal Region, Open Approach (ICD-10-PCS; 2023-04-23)
DX: K40.31 Unilateral inguinal hernia, with obstruction, without gangrene, recurrent (principal); K55.011 Focal (segmental) acute (reversible) ischemia of small intestine; E87.20 Acidosis, unspecified; K92.2 Gastrointestinal hemorrhage, unspecified; I48.91 Unspecified atrial fibrillation; I10 Essential (primary) hypertension; E66.9 Obesity, unspecified; Z68.36 Body mass index [BMI] 36.0-36.9, adult; E78.5 Hyperlipidemia, unspecified; K44.9 Diaphragmatic hernia without obstruction or gangrene; K40.90 Unilateral inguinal hernia, without obstruction or gangrene, not specified as recurrent; K59.00 Constipation, unspecified; Z87.891 Personal history of nicotine dependence; Z79.01 Long term (current) use of anticoagulants; Z79.899 Other long term (current) drug therapy; Z88.0 Allergy status to penicillin; Z88.2 Allergy status to sulfonamides
CPT/HCPCS: 36415; 74177; 80048; 80053; 81003; 83605; 83690; 83735; 85025; 88307; 94760; 96361; 96374; 99285